=== PATIENT | female | born 1975 | race American Indian/Alaskan Native ===

== ENCOUNTER 2017-12-26 16:50 | Emergency (ER) | payer BC, OTHER ==
[2017-12-26 17:39] LABS: Hemoglobin 9.7 gm/dl (10.1-14.3); Mean Corpuscular HGB Conc 31 % (30-34); Platelet Count 395 K/mm3 (140-440); Red Blood Count 4.51 M/mm3 (3.65-5.03)
[2017-12-26 17:45] LABS: Mean Corpuscular Hemoglobin 21 pg (28-32); Mean Corpuscular Volume 69 fl (79-97)
[2017-12-26 18:00] LABS: BUN/Creatinine Ratio 13; Blood Urea Nitrogen 9 mg/dL (7-17); Calcium 8.6 mg/dL (8.4-10.2); Hemolysis Index 0
[2017-12-26] MEDS ORDERED: CATAPRES ONE (19:10)
[2017-12-26] MEDS ORDERED: CATAPRES PO ONE (19:19)
--- NOTE | 2017-12-26 21:46 | Emergency Department Report ---
ED General Adult HPI - General Chief complaint: High BP Stated complaint: HIGH BLOOD PRESSURE Time Seen by Provider: 12/26/17 20:10 Source: patient Mode of arrival: Ambulatory Limitations: No Limitations - History of Present Illness Initial comments: Ms. Arnold is a very pleasant healthy 42-year-old female with history of peripartum hypertension and obesity presents with elevated blood pressure. She was seen by her JOB COACHING today for routine Pap smear. She was noted to have severely elevated blood pressure. She denies headache. Denies blurry vision. Denies chest pain. She has been in good health. She's had 2 pregnancies. With her first the blood pressure resolved. She has not taken blood pressure medication in the last 4 years. She does not have a primary physician in addition to her JOB COACHING. Several family members have history of hypertension including sister and mother. Severity scale (0 -10): 0 - Related Data Previous Rx's Medication Instructions Recorded Last Taken Type Labetalol HCl [Trandate TAB] 300 mg PO BID #60 tablet 05/23/13 06/05/13 07:00 Rx Ibuprofen [Motrin 800 MG tab] 800 mg PO TID PRN #30 tablet 06/22/13 Unknown Rx Labetalol HCl [Trandate TAB] 300 mg PO TID #90 tab 06/22/13 Unknown Rx Lidocain2.5%/Prilocai2.5% [Emla] 5 gm TP ONCE #1 tube 06/22/13 Unknown Rx NIFEdipine XL [Procardia Xl] 60 mg PO QDAY #30 tablet 06/22/13 Unknown Rx oxyCODONE /ACETAMINOPHEN [Percocet 1 - 2 tab PO Q4HR PRN #30 tablet 06/22/13 Unknown Rx 5/325 mg] amLODIPine [Norvasc] 5 mg PO DAILY 90 Days #90 tab 12/26/17 Unknown Rx hydroCHLOROthiazide [HCTZ] 25 mg PO QDAY 90 Days #90 tablet 12/26/17 Unknown Rx Allergies Allergy/AdvReac Type Severity Reaction Status Date / Time No Known Allergies Allergy Verified 05/22/13 14:16 ED Review of Systems ROS: Stated complaint: HIGH BLOOD PRESSURE Other details as noted in HPI Constitutional: no symptoms reported. denies: fever, malaise Respiratory: denies: cough Cardiovascular: denies: chest pain ED Past Medical Hx - Past Medical History Hx Hypertension: Yes (gestational only) Hx Congestive Heart Failure: No Hx Diabetes: No Hx Deep Vein Thrombosis: No Hx Renal Disease: No Hx Sickle Cell Disease: No Hx Seizures: No Hx Asthma: No Hx COPD: No Hx HIV: No - Surgical History Past Surgical History?: Yes Additional Surgical History: , tubiligation - Social History Smoking Status: Never Smoker Substance Use Type: None - Medications Home Medications: Home Medications Medication Instructions Recorded Confirmed Last Taken Type Labetalol HCl [Trandate TAB] 300 mg PO BID #60 tablet 05/23/13 06/05/13 07:00 Rx Ibuprofen [Motrin 800 MG tab] 800 mg PO TID PRN #30 tablet 06/22/13 Unknown Rx Labetalol HCl [Trandate TAB] 300 mg PO TID #90 tab 06/22/13 Unknown Rx Lidocain2.5%/Prilocai2.5% [Emla] 5 gm TP ONCE #1 tube 06/22/13 Unknown Rx NIFEdipine XL [Procardia Xl] 60 mg PO QDAY #30 tablet 06/22/13 Unknown Rx oxyCODONE /ACETAMINOPHEN [Percocet 1 - 2 tab PO Q4HR PRN #30 tablet 06/22/13 Unknown Rx 5/325 mg] amLODIPine [Norvasc] 5 mg PO DAILY 90 Days #90 tab 12/26/17 Unknown Rx hydroCHLOROthiazide [HCTZ] 25 mg PO QDAY 90 Days #90 tablet 12/26/17 Unknown Rx ED Physical Exam - General Limitations: No Limitations General appearance: alert, in no apparent distress - Head Head exam: Present: atraumatic, normocephalic - Eye Eye exam: Present: normal appearance - ENT ENT exam: Present: mucous membranes moist - Neck Neck exam: Present: normal inspection. Absent: tenderness, meningismus - Respiratory Respiratory exam: Present: normal lung sounds bilaterally. Absent: respiratory distress, wheezes, rales, stridor - Cardiovascular Cardiovascular Exam: Present: regular rate, normal rhythm, normal heart sounds. Absent: systolic murmur, diastolic murmur, rubs, gallop - GI/Abdominal GI/Abdominal exam: Present: soft, normal bowel sounds. Absent: distended, tenderness, guarding, rebound - Extremities Exam Extremities exam: Present: normal inspection - Back Exam Back exam: Present: normal inspection - Neurological Exam Neurological exam: Present: alert, oriented X3 - Psychiatric Psychiatric exam: Present: normal affect, normal mood - Skin Skin exam: Present: warm, dry, intact, normal color. Absent: rash ED Course Vital Signs 12/26/17 12/26/17 12/26/17 16:53 19:16 19:20 Temperature 97.9 F Pulse Rate 111 H 105 H 105 H Respiratory 18 18 Rate Blood Pressure 209/129 227/123 227/123 Blood Pressure [Left] O2 Sat by Pulse 98 100 Oximetry 12/26/17 12/26/17 20:39 20:44 Temperature 97.8 F Pulse Rate 103 H Respiratory 15 Rate Blood Pressure 157/93 Blood Pressure 157/93 [Left] O2 Sat by Pulse 98 Oximetry ED Medical Decision Making - Lab Data Result diagrams: 12/26/17 17:30 12/26/17 17:30 - EKG Data EKG shows normal: sinus rhythm, axis, intervals, QRS complexes, ST-T waves Rate: tachycardia - EKG Data Interpretation: no acute changes, normal EKG (except for tachycardia) - Medical Decision Making Ms. Arnold presents with severely high asymptomatic elevated blood pressure. BP normalized with Clonidine given in ED. Patient was given verbal and written education regarding HTN management and diagnosis. 90 prescription of HCTZ and amlodipine provided. 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 I have asked her to contact her OBGYN for possible primary care management of HTN. Critical care attestation.: If time is entered above; I have spent that time in minutes in the direct care of this critically ill patient, excluding procedure time. ED Disposition Clinical Impression: Hypertensive urgency Disposition: DC-01 TO HOME OR SELFCARE Is pt being admited?: No Does the pt Need Aspirin: No Condition: Stable Instructions: Hypertension (ED) Prescriptions: amLODIPine [Norvasc] 5 mg PO DAILY 90 Days #90 tab hydroCHLOROthiazide [HCTZ] 25 mg PO QDAY 90 Days #90 tablet Referrals: DAVID PALOMARES MD [Staff Physician] - 3-5 Days [facility] [Outside] - 3-5 Days Forms: Work/School Release Form(ED)
[2017-12-26 22:03] VITALS: BP 138/80
== END 2017-12-26 22:02 | disposition home or self-care (01) ==
LOC: ED 16:50
DX: I10 Essential (primary) hypertension (principal); Z98.51 Tubal ligation status
CPT/HCPCS: 36415; 80048; 85027; 93005; 93010

== ENCOUNTER 2018-01-15 14:37 | Outpatient (CLI) | payer BC ==
--- NOTE | 2018-01-16 08:15 | Mammography Report ---
BILATERAL DIGITAL SCREENING MAMMOGRAM with CAD: 01/15/18 14:37:00 CLINICAL: Routine screening. COMPARISON:01/12/15 FINDINGS: The breasts are almost entirely fatty. No mass, architectural distortion or suspicious calcifications. IMPRESSION: No mammographic evidence of malignancy. BI-RADS CATEGORY: 1 - - Negative RECOMMENDATION: Routine mammographic screening in one year. COMMENT: Patient follow-up letters are generated by our [employer] application.
== END 2018-01-15 14:38 | disposition home or self-care (01) ==
LOC: MAMMO 14:37
PROVIDERS: ATTEND Obstetrics & Gynecology
DX: Z12.31 Encounter for screening mammogram for malignant neoplasm of breast (principal); I10 Essential (primary) hypertension
CPT/HCPCS: 77067

== ENCOUNTER 2019-02-11 10:36 | Outpatient (CLI) | payer OTHER ==
--- NOTE | 2019-02-12 13:07 | Mammography Report ---
DIGITAL SCREENING MAMMOGRAM WITH CAD, 02/11/2019 INDICATION: Routine screening mammography. TECHNIQUE: Digital bilateral 2D mammography was obtained in the craniocaudal and mediolateral obliq ue projections. This examination was interpreted with the benefit of Computer-Aided Detection analysi s. COMPARISON: 01/12/2015 and 01/15/2018 FINDINGS: Breast Density: The breasts are almost entirely fatty. There is no evidence of dominant mass, suspicious calcifications or architectural distortion in eithe r breast. IMPRESSION: No mammographic evidence of malignancy. Follow up recommendation: Routine yearly BI-RADS Category 1: Negative. A "normal" or negative report should not discourage follow up or biopsy of a clinically significant f inding. A written summary of these findings will be mailed to the patient. The patient will be entered into a mammography reporting system which will generate a reminder letter for the patient's next appointmen t at the appropriate interval. [employer] recommends yearly mammograms starting at age 40 and continuing as l olesya as a woman is in good health. Breast MRI is recommended for women with an approximate 20-25% or greater lifetime risk of breast cancer, including women with a strong family history of breast or ova kacie cancer or who have been treated for Hodgkin's disease. Signer Name: Arthur Skinner MD Signed: 02/12/2019 1:02 PM Workstation Name: [id number]
== END 2019-02-11 10:37 | disposition home or self-care (01) ==
LOC: MAMMO 10:36
PROVIDERS: ATTEND Obstetrics & Gynecology
DX: Z12.31 Encounter for screening mammogram for malignant neoplasm of breast (principal)
CPT/HCPCS: 77067